=== PATIENT | male | born 1955 | race American Indian/Alaskan Native ===

== ENCOUNTER 2017-07-26 15:01 | Emergency (ER) | payer OTHER ==
[2017-07-26 15:16] VITALS: BP 138/80
--- NOTE | 2017-07-26 19:27 | Emergency Department Report ---
ED General Adult HPI - General Chief complaint: Dyspnea/Respdistress Stated complaint: ASCITES Time Seen by Provider: 07/26/17 19:14 Source: patient, family, EMS, RN notes reviewed Mode of arrival: Stretcher Limitations: Physical Limitation - History of Present Illness Initial comments: This is a 62-year-old male who was previously unknown to this provider. 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 Patient recently admitted to [facility] for the aforementioned, had a therapeutic paracentesis performed. Patient was subsequently discharged, and presents today complaining of leakage from his puncture site. Patient denies headache, neck pain, chest pain, abdominal pain he does have chronic shortness of breath which is nothing new, worsening or different. Patient also endorses chronic lower extremity swelling which has been present for weeks, and months. His leaking is constant, it is main complaint, it does not radiate anywhere, and has no exacerbating factors, it decreases with direct digital pressure. -: Gradual Location: abdomen Radiation: non-radiation Consistency: constant Improves with: other Associated Symptoms: shortness of breath, weakness. denies: confusion, chest pain, cough, diaphoresis, fever/chills - Related Data Allergies Allergy/AdvReac Type Severity Reaction Status Date / Time amlodipine AdvReac Unknown Verified 07/26/17 15:19 ED Review of Systems ROS: Stated complaint: ASCITES Other details as noted in HPI ED Past Medical Hx - Past Medical History Previous Medical History?: Yes Hx Hypertension: Yes Hx Liver Disease: Yes Hx Renal Disease: Yes - Surgical History Past Surgical History?: Yes - Social History Smoking Status: Unknown if ever smoked Substance Use Type: None ED Physical Exam - General Limitations: Physical Limitation General appearance: alert, in no apparent distress - Head Head exam: Present: atraumatic, normocephalic - Eye Eye exam: Present: normal appearance, EOMI. Absent: nystagmus - ENT ENT exam: Present: normal exam, normal orophraynx, mucous membranes moist, normal external ear exam - Neck Neck exam: Present: normal inspection, full ROM - Respiratory Respiratory exam: Present: normal lung sounds bilaterally. Absent: respiratory distress - Cardiovascular Cardiovascular Exam: Present: regular rate, normal rhythm, normal heart sounds. Absent: systolic murmur, diastolic murmur, rubs, gallop - GI/Abdominal GI/Abdominal exam: Present: soft, distended, normal bowel sounds, other ( patient has a positive fluid wave. He is nontender. In the left lower quadrant , there is a puncture site that is leaking clear ascites fluid.). Absent: tenderness, guarding, rebound, rigid, pulsatile mass - Rectal Rectal exam: Present: deferred - Extremities Exam Extremities exam: Present: normal inspection, pedal edema. Absent: calf tenderness - Back Exam Back exam: Present: normal inspection, full ROM. Absent: tenderness, CVA tenderness (R), paraspinal tenderness, vertebral tenderness - Neurological Exam Neurological exam: Present: alert, oriented X3, CN II-XII intact, other ( Extraocular movements intact. Tongue midline. No facial droop. Facial sensation intact to light touch in the V1, V2, V3 distribution bilaterally. 5 and 5 strength in 4 extremities.. Sensation is intact to light touch in 4 extremities.). Absent: motor sensory deficit - Psychiatric Psychiatric exam: Present: normal affect, normal mood - Skin Skin exam: Present: warm, dry, intact, normal color. Absent: rash ED Course Vital Signs 07/26/17 07/26/17 15:08 16:18 Temperature 98.3 F Pulse Rate 75 Respiratory 22 16 Rate Blood Pressure 138/80 O2 Sat by Pulse 96 Oximetry - Procedure Description Procedures done: Multiple layers of adhesive Dermabond are applied to the puncture site in the left lower quadrant. At the same time, a nasal cannula is taped to the patient's abdominal wall, and high flow rates of oxygen are applied to facilitate drying of adhesive. The patient tolerated the procedure well, there were no obvious complications. ED Medical Decision Making - Lab Data Vital Signs 07/26/17 07/26/17 15:08 16:18 Temperature 98.3 F Pulse Rate 75 Respiratory 22 16 Rate Blood Pressure 138/80 O2 Sat by Pulse 96 Oximetry - EKG Data 07/26/17 21:31 Patient's old medical records from [facility] are reviewed. - Medical Decision Making Differential diagnosis, including but not limited to: Persistent ascites fluid leak from recent paracentesis Assessment and plan: 62-year-old male who is brought to the hospital by EMS with a complaint of leaking from paracentesis puncture site. He has no chest pain he has chronic shortness of breath, he has no crackles or rales, he is saturating well, and has chronic lower extremity edema. His abdomen is soft and benign, with no tenderness, rebound, guarding or peritoneal signs, his exam is not consistent or suggestive of bacterial peritonitis, and there is no superficial erythema, induration or fluctuance. Therefore, infectious process very unlikely. Patient had a nasal cannula applied at high flow rates to the paracentesis puncture site, and multiple layers of adhesive, Dermabond, were applied to the puncture site, which dramatically improves the leak. A pressure bandage was then applied. It is not appear to be an emergent condition at this time, and the patient is suitable to be discharged. Critical care attestation.: If time is entered above; I have spent that time in minutes in the direct care of this critically ill patient, excluding procedure time. ED Disposition Clinical Impression: Ascites Disposition: DC-01 TO HOME OR SELFCARE Is pt being admited?: No Does the pt Need Aspirin: No Condition: Stable Additional Instructions: Continue current outpatient medications. Keep the Dermabond in place over the puncture site. Keep the site dry, and do not apply water to it. Adhesive will fall off on its own in a few days. Follow-up with a primary care doctor or assistant librarian within the next 7-10 days. Return to the ER with fevers, chills, lethargy, irritability, vomiting, change in mental status, confusion, inability to tolerate liquid feeds, redness, pus, streaking, discharge Referrals: [facility] [Primary Care Provider] - 3-5 Days [facility] [Provider Group] - 3-5 Days
== END 2017-07-26 23:05 | disposition home or self-care (01) ==
LOC: ED 15:01
DX: R18.8 Other ascites (principal); I10 Essential (primary) hypertension
CPT/HCPCS: 99283